=== PATIENT | female | born 1970 | race Caucasian/White ===

== ENCOUNTER 2017-03-25 11:03 | Inpatient (IN) ==
[2017-03-25] MEDS ORDERED: FentaNYL 100 MCG/2 ML INJECTION IVP ONE (11:31)
[2017-03-25] MEDS ORDERED: NS 1,000 ML IV ONE (11:31)
--- OUTSIDE RECORDS SUMMARY | 2017-03-25 11:35 | External Medical Summary | Referral Summary ---
:1970 Author Organization [facility] Address [address] [place] [address] [place] [address] Care Team Providers Name Role Phone Nick Marlow Primary Care Physician Encounter VC Date(s): 10/02/14 - 10/02/14 [facility], [address] [place] [id number]- Discharge Diagnosis: History of diverticulitis of colon Discharge Diagnosis: Abdominal pain, LLQ (left lower quadrant) Discharge Diagnosis: Alternating constipation and diarrhea Discharge Disposition: -Home or Self Care Attending Physician: Aaron García MD Admitting Physician: Aaron García MD Referring Physician: Aaron García MD Vital Signs Most recent to oldest [Reference Range]: 1 Temperature Tympanic [36.6-38.1 degC] 36.6 degC (10/02/14 2:37 PM) Peripheral Pulse Rate [60-100 bpm] 64 bpm (10/02/14 2:37 PM) Respiratory Rate [14-20 br/min] 16 br/min (10/02/14 2:37 PM) Blood Pressure [90-140/60-90 mmHg] 132/78 mmHg (10/02/14 2:37 PM) Problem List Condition Effective Dates Status Health Status Informant History of diverticulitis of Active colon(Confirmed) Morbid obesity(Confirmed) Active patient Allergies, Adverse Reactions, Alerts Substance Reaction Severity Status Alupent Dyspnea Active Rash aspirin Rash Active Benadryl Adverse reaction Active Cleocin Phosphate Abnormal liver enzymes Active Cortizone-5 Bladder dysfunction Active erythromycin Rash Active halothane Ventricular tachycardia Active Keflex Rash Active Lincocin rash Active neomycin Rash Active penicillins Rash Active sulfa drugs Rash Active tetracycline Active Medications albuterol CFC free 90 mcg/inh inhalation aerosol 2 puffs, Inhalation, QID, as needed for wheezing, updating med list, # 8.5 g, 0 Refill(s) Start Date: 09/27/14 Status: Orderedomeprazole 20 mg oral delayed release tablet 20 mg 1 tabs, Oral, Daily, updating med list, # 30 tabs, 0 Refill(s) Start Date: 09/27/14 Status: OrderedPhenergan 25 mg rectal suppository 25 mg 1 supp, Rectal, q6hr, updated med list, # 6 supp, 0 Refill(s) Start Date: 09/27/14 Status: Orderedphentermine 30 mg oral capsule 30 mg 1 caps, Oral, Daily, # 30 caps, 0 Refill(s) Start Date: 09/27/14 Status: OrderedSingulair 10 mg oral tablet 10 mg 1 tabs, Oral, qPM, updating med list, # 30 tabs, 0 Refill(s) Start Date: 09/27/14 Status: OrderedtraMADol 50 mg oral tablet See Instructions, has taken twice prn pain., 0 Refill(s) Start Date: 10/02/14 Status: OrderedTylenol Regular Strength 325 mg oral tablet 325 mg 1 tabs, Oral, q4hr, updating med list, # 50 tabs, 0 Refill(s) Start Date: 09/27/14 Status: Ordered Results No data available for this section Immunizations Vaccine Date Refusal Reason poliovirus vaccine, inactivated 02/12/13 poliovirus vaccine, inactivated 02/21/12 Procedures Procedure Date Related Diagnosis Body Site Cholecystectomy1, 2 05/15/13 Hysterectomy3 2010 Adenoidectomy 1984 Sinus problem4 1981 1Robotic assisted Cholecystectomy- by Dr. Geiger with stone [id number] for stone removal [id number] Hyst. with R Oophorectomy(spared L ovary) due to Menorrhagia and cysts age 89Sinus surgery age 12 Social History Social History Type Response Smoking Status Former smoker; Type: Cigarettes; Number of years: 21 1Quit in 1996 Assessment and Plan Extracted from: Title: Office Visit Note Author: Aaron García MD Date: 10/02/14 Assessment/Plan Abdominal pain, LLQ (left lower quadrant) Ordered: Office Visit Level 4 New [id number] Alternating constipation and diarrhea Ordered: Office Visit Level 4 New [id number] History of diverticulitis of colon Ordered: Office Visit Level 4 New [id number] Plan: No appropriate indication to repeat endoscopy/colonoscopy at this time. Pros and cons of surgical intervention discussed with patient in regards to her history for chronic diverticulitis. Non operative intervention at this time with ongoing close observation. I did review the patient's chart including office note performed by her primary care physician from August 05, 2014. I did go back and review a prior ER visit and CT scan performed on July. CT scan performed on this date did reveal recurrent sigmoid diverticulitis. Inflammatory changes and stranding were noted surrounding the sigmoid colon over a fairly long segment of involvem ent. This segment was also involved on a prior comparison study back in January 2012. Reviewed prior colonoscopy report from November 16, 2011 performed at [facility]. Sigmoid diverticuliti s was noted at that time. I did spend a fair amount of time discussing diverticulitis as an entity with the patient. I informed the patient that the "surgical dogma" in regards to surgical managemen t of diverticulitis has changed over the last several years. 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 Currently the surgical literat ure is recommending thatfor the most part only those patients with chronic relapsing diverticulitis should undergo surgical intervention. I informed the patient that I do believe that she is begin kyle to fall in this category given the fact that she has had recurrent bouts of diverticulitis in this calendar year. I informed the patient however I felt that she was at a increased operative risk given her degree of obesity. I informed the patient that secondary to her body habitus I felt that it would be difficult to proceed with a laparoscopic colon resection and that an open sigmoid resecti on would likely be required.I did go ahead and discuss in detail with the patient what an open sigmoid resection would entail and its associated risk which included but was not inclusive of bleeding , infection, and specifically the potential for anastomotic leak. After a moderate amount of discussion it was elected that we would not proceed with surgical intervention at this time and would liz nue to follow her from a clinical standpoint. If she would go on to develop further bouts of diverticulitis in the near future then that at that point time she was to return to the office for further evaluation. Given the fact that she had a colonoscopy performed only 3 years ago that was within normal limits I informed the patient that I did not feel that we needed to repeat a colonoscopy at this juncture in time. She is to return back her primary care physician for ongoing medical care.
--- OUTSIDE RECORDS SUMMARY | 2017-03-25 11:35 | External Medical Summary | Continuity of Care Document ---
:1970 Author Organization [facility] Allergies Medications Problems Procedures Results Encounters
--- OUTSIDE RECORDS SUMMARY | 2017-03-25 11:35 | External Medical Summary | Continuity of Care Document ---
:1970 Author Organization [facility] Support Name Relationship Address Phone OSVALDO NIEVES MD Unavailable [address] [place] [address] GOLDIE BERNARDO MD Unavailable [address] [place] [address] YUNIEL YEBOAH Unavailable [address] Unavailable [address] [place] [address] Insurance Providers Payer Name Policy Number Subscriber Name Relationship [employer] Ppo/Open [employer] [id number] Yuniel Yebo[place] 01 Spouse Problems Medical Problems Problem Onset Date Status cholelithiasis with acute cholecystitis Unknown Active elevated liver enzymes Unknown Active Diverticulitis Unknown Active Medications Medication Dose Route Sig Days/Qty Instructions Order Discontinued Status Date Date Albuterol 17 Gm IH 10/31/ 08/12/11 Discontin NEEDED 10 ued Albuterol 2.5 Mg IH 10/31/ 08/12/11 Discontin Sulfate NEEDED 10 ued Ciprofloxacin 500 Mg PO TWICE A 05/14/13 Discontin Hcl DAY 12 ued Metronidazole 500 Mg PO THREE 08/11/ 05/14/13 Discontin TIMES A 12 ued DAY Ipratropium/Al 14.7 IH 08/11/ Active buterol Gm NEEDED 12 Sulfate Hydrocodone 1 PO PRN 05/14/13 Discontin Bit/Acetaminop Udtab 12 ued hen Promethazine 25 Mg PO PRN 05/14/13 Discontin Hcl 12 ued Ciprofloxacin 1 Tab PO TWICE A 28 Qty 08/10/ Active HCl DAY 15 Metronidazole 1 Tab PO THREE 08/10/ Active TIMES A 15 DAY Hydrocodone/Ac 1 Tab PO EVERY 4 30 Qty 08/10/ Active etaminophen HOURS 15 PRN PAIN Ibuprofen 1 Tab PO Every 6 08/10/ Active Hours 15 PRN PAIN Acetaminophen 1-2 PO Every 6 08/10/ Active Tab Hours 15 PRN PAIN Tramadol HCl 1-2 PO Every 6 30 Qty 08/10/ Active Tab Hours 15 PRN PAIN Ondansetron 4 Mg PO Q6H/030 20 Qty Oral 08/10/ Active 0,0900, disintegrating 15 1500,21 tablet 00 PRN NAUSEA &/O R VOMITIN G Social History Social History Problem Response Recorded Date/Time Hx Substance Use No 08/10/2014 10:18am Hx Alcohol Use Y occassionally 08/10/2014 10:18am Has the pt used tobacco in the last 12 months Yes 05/14/2013 8:38pm Query Response Start Date Stop Date Smoking Status Former smoker Hospital Discharge Instructions No hospital discharge instructions. Plan of Care No plan of care. Functional Status Query Response Date Recorded Physical Hygiene Self August 10, 2014 10:18am Disabilities None August 10, 2014 10:18am Devices Used None August 10, 2014 10:18am Dressing Self August 10, 2014 10:18am Ambulation Self August 10, 2014 10:18am Diet Self August 10, 2014 10:18am Mental Status Alert August 10, 2014 10:18am Oriented Disabilities None August 10, 2014 10:18am Devices Used None August 10, 2014 10:18am Physical Hygiene Self August 10, 2014 10:18am Dressing Self August 10, 2014 10:18am Ambulation Self August 10, 2014 10:18am Diet Self August 10, 2014 10:18am Allergies, Adverse Reactions, Alerts Allergen Type Severity Reaction Status Last Updated metaproterenol Allergy Unknown RASH,SOA Active 08/10/14 sulfate lincomycin HCl Allergy Unknown RASH Active 08/10/14 clindamycin HCl Allergy Unknown "LIVER Active 08/10/14 SWELLING" clindamycin phosphate Allergy Unknown "LIVER Active 08/10/14 SWELLING" Clindamycin Palmitate Allergy Unknown "LIVER Active 08/10/14 SWELLING" Cephalexin Allergy Unknown RASH Active 08/10/14 Monohydrate Penicillin Allergy Unknown RASH Active 08/10/14 Sulfa (Sulfonamide Allergy Unknown RASH Active 08/10/14 Antibiotics) Halothane Allergy Unknown VENTRICULAR Active 08/10/14 TACHYCARDIA Aspirin Allergy Unknown RASH Active 08/10/14 Prednisone Allergy Intermediate SWELLING Active 08/10/14 Tetracycline Adverse Unknown STOMACH Active 08/10/14 Reaction ACHE,VOMITING,ELIAS RRHEA Erythromycin base Allergy Unknown RASH Active 08/10/14 Neomycin Allergy Unknown RASH Active 08/10/14 Zomepirac Allergy Unknown INTRADERMAL Active 08/10/14 BLEEDING Diphenhydramine Adverse Mild hyperactive Active 08/10/14 Reaction Vancomycin Allergy Severe Active 08/10/14 Cortisone Allergy Unknown SWELLING,BLADDER Active 08/10/14 DYSFUNCTION Immunizations Name Given Type Hx Influenza Vaccination Y mar 2014 Historical Hx Pneumococcal Vaccination No Historical Hx Influenza Vaccination Y mar 2014 Historical Vital Signs Acute Vital Signs Vital Response Date/Time Temperature (Fahrenheit) 97.4 deg F (96.8 - 99.1) Temperature (Calculated Celsius) 36.81539 degrees C (36.0 - 37.3) Pulse Rate (adult) 55 bpm (60 - 100) Respiratory Rate 20 breaths/min (10 - 20) O2 Sat by Pulse Oximetry 96 % (90 - 100) Blood Pressure 158/70 mm Hg Height 5 ft 6 in Weight 272 lb Body Mass Index 43.0 kg/m^2 Results Test Source Date Result Interp. Ref. Comments Range Activated Partial May 14, 30.8 SEC N 24-36 Thromboplast Time 2013 3:45pm Alanine July 11, 33 U/L N 9-52 Aminotransferase 2014 (ALT/SGPT) 11:00am Albumin August 10, 4.0 G/DL N 3.5-5.0 2014 11:00am Albumin/Globulin August 10, 1.2 RATIO N 1.1-2.2 Ratio 2014 11:00am Alkaline Phosphatase July 11, 69 U/L N 38-126 2014 11:00am Amylase Level July 10, 49 U/L N 30-110 2012 9:40am Anion Gap July 11, 12 MEQ/L N 5-15 2014 11:00am Aspartate Amino July 11, 28 U/L N 14-36 Transf (AST/SGOT) 2014 11:00am BUN/Creatinine Ratio August 10, 13 RATIO N 6-26 2014 11:00am Basophils # (Auto) August 10, 0.1 T/MM3 N 0-0.2 2014 11:00am Basophils (%) (Auto) August 10, 0.6 % N 0-2 2014 11:00am Blood Urea Nitrogen August 10, 8.0 MG/DL N 7-17 2014 11:00am C-Reactive Protein December 07, 6.3 MG/L N 0-9 2010 2:55pm Calcium Level August 10, 8.9 MG/DL N 8.4-10.2 2014 11:00am Calculated August 10, 267 MOSM/KG N 261-280 Osmolality 2014 11:00am Carbon Dioxide Level August 10, 23 MEQ/L N 22-30 2014 11:00am Chemistry Specimen August 10, 54 H 0-25 0-25: No Hemolysis.26-70: Slight Hemolysis - can falsely elevate K and Urine Hemolysis 2014 Protein. 11:00am 71-285: Moderate Hemolysis - can falsely elevate K, Troponin I, CA 19-9, PTH, CSF GLucose, and Urine Protein, and can falsely decrease Phenytoin. 286-999: Gross Hemolysis - can falsely elevate K, Troponin I, CA 19-9, PTH, CSF Glucose, and Urine Protine, and can falsely decrease Phenytoin. Recommend specimen recollection. Chloride Level August 10, 105 MEQ/L N 98-107 2014 11:00am Cholesterol Level July 22, 212 MG/DL H [phone] 6:34am Cholesterol/HDL July 22, 5.3 RATIO H 0-4.0 Ratio 2011 6:34am Creatinine August 10, 0.6 MG/DL L 0.7-1.2 2014 11:00am Eosinophils # (Auto) August 10, 0.2 T/MM3 N 0-0.5 2014 11:00am Eosinophils (%) August 10, 2.1 % N 0-4 (Auto) 2014 11:00am Erythrocyte December 07, 6 MM/HR N 0-20 Sedimentation Rate 2010 2:55pm Ferritin July 22, 29.7 NG/ML N 6-137 2011 6:34am Globulin August 10, 3.3 G/DL N 2.4-3.6 2014 11:00am Glomerular August 10, 110 - Filtration Rate Calc 2014 11:00am Glucose Level August 10, 90 MG/DL N 65-110 2014 11:00am HDL Cholesterol July 22, 40 MG/DL N 40-60 Direct 2011 6:34am Hematocrit August 10, 40.9 % N 36-46 2014 11:00am Hemoglobin August 10, 13.7 GM/DL N 12-16 2014 11:00am Human Chorionic October 31, Negative - Gonadotropin, Qual 2009 7:26am Icterus Index August 10, < 2 0-7 2014 11:00am Immature Granulocyte August 10, 0.01 T/MM3 N 0.00-0.03 # (Auto) 2014 11:00am Immature Granulocyte August 10, 0.1 % N 0.0-0.5 % (Auto) 2014 11:00am Influenza Type A July 13, Negative - Antigen 2009 12:12am Influenza Type B July 13, Negative - Antigen 2009 12:12am LDL Cholesterol, July 22, 172 H 66-159 Calculated 2011 6:34am Lab Scanned Report August 09, LAB TEST FORM - 2011 8:59pm REQUEST [id number] Lipase August 10, 81 U/L N 23-300 2014 11:00am Lymphocytes # (Auto) August 10, 2.3 T/MM3 N 1-4.8 2014 11:00am Lymphocytes (%) August 10, 24.8 % N 23-45 (Auto) 2014 11:00am Mean Corpuscular August 10, 30.5 UUG N 26-34 Hemoglobin 2014 11:00am Mean Corpuscular August 10, 33.5 GM/DL N 31-37 Hemoglobin Concent 2014 11:00am Mean Corpuscular August 10, 91.1 UM3 N 80-100 Volume 2014 11:00am Mean Platelet Volume August 10, 10.4 UM3 N 9.4-12.4 2014 11:00am Monocytes # (Auto) August 10, 0.4 T/MM3 N 0-0.8 2014 11:00am Monocytes (%) (Auto) August 10, 3.8 % N 0-9.0 2014 11:00am NW-Ojx-N-Type May 14, 40 PG/ML N 0-175 Rule in cut points: <50 years old=450; Natriuretic Peptide 2013 3:45pm 50-75 years old=900; >75 years old=1800; When utilizing ProBNP rule-in cut points, adjustment for impaired renal function is typically not required. Neutrophils # (Auto) August 10, 6.4 T/MM3 N 1.8-7.7 2014 11:00am Neutrophils (%) August 10, 68.6 % H 33-66 (Auto) 2014 11:00am Platelet Count August 10, 283 T/MM3 N 143-930 0374 11:00am Potassium Level August 10, 4.4 MEQ/L N 3.6-5 2014 11:00am Prothromb Time May 14, 0.92 N 0.86-1.10 THERAPUTIC International Ratio 2013 3:45pm RANGE=2.00-3.00 FOR ANTI-THROMBOSIS THERAPUTIC RANGE=2.50-3.50 FOR IMPLANTED VALVE RDW Standard August 10, 40.9 FL N 36.9-50.2 Deviation 2014 11:00am Red Blood Count August 10, 4.49 M/MM3 N 4.00-5.20 2014 11:00am Sodium Level August 10, 140 MEQ/L N [phone] 11:00am Thyroid Stimulating July 22, 2.11 MIU/L N 0.47-4.68 Hormone (TSH) 2011 6:34am Total Bilirubin August 10, 0.40 MG/DL N 0.20-1.30 2014 11:00am Total Protein August 10, 7.3 G/DL N 6.3-8.2 2014 11:00am Triglycerides Level July 22, 118 MG/DL N 35-135 2011 6:34am Troponin I May 14, < 0.012 0-0.12 2013 3:45pm ng/ml Turbidity August 10, < 20 0-20 2014 11:00am Urinalysis Comment August 10, Microscopic not - Has specimen 2014 ind. been 11:50am collected/obtai junior? Y Urine Bilirubin August 10, Negative - Has specimen 2014 been 11:50am collected/obtai junior? Y Urine Blood August 10, Negative - Has specimen 2014 been 11:50am collected/obtai junior? Y Urine Collection August 10, Voided-not - Has specimen Type 2014 cc-midstr been 11:50am collected/obtai junior? Y Urine Color August 10, Yellow - Has specimen 2014 been 11:50am collected/obtai junior? Y Urine Glucose (UA) August 10, Negative - Has specimen 2015 been 11:50am collected/obtai junior? Y Urine Ketones August 10, Negative - Has specimen 2015 been 11:50am collected/obtai junior? Y Urine Leukocyte August 10, Negative - Has specimen Esterase 2015 been 11:50am collected/obtai junior? Y Urine Microscopic December 07, Not indicated - COMMENT DO Not Indicated 2010 5:52pm C&S IF INDICATEDHas specimen been collected/obtai junior? Y Urine Mucus August 11 Present - Has specimen 2011 2:10am been collected/obtai junior? Y Urine Nitrite August 10, Negative - Has specimen 2014 been 11:50am collected/obtai junior? Y Urine Protein August 10, Negative - Has specimen 2014 been 11:50am collected/obtai junior? Y Urine RBC August 11, 0-1 /HPF - Has specimen 2011 2:10am been collected/obtai junior? Y Urine Specific August 10, <=1.005 L - Has specimen [place] 2014 been 11:50am collected/obtai junior? Y Urine Squamous August 11, Moderate - Has specimen Epithelial Cells 2011 2:10am been collected/obtai junior? Y Urine Turbidity August 10, Clear - Has specimen 2014 been 11:50am collected/obtai junior? Y Urine Urobilinogen August 10, 0.2 EU/DL - Has specimen 2014 been 11:50am collected/obtai junior? Y Urine WBC August 11, 1-3 /HPF - Has specimen 2011 2:10am been collected/obtai junior? Y Urine pH August 10, 6.0 - Has specimen 2014 been 11:50am collected/obtai junior? Y VLDL Cholesterol July 22, 23.6 MG/DL N 0-28 2011 6:34am White Blood Count August 10, 9.3 T/MM3 N 4.5-11.0 2014 11:00am Blood Culture Blood December 07, NO GROWTH AFTER 2010 3:00pm 5 DAYS Procedures No known history of procedures. Encounters Encounter Location Date/Time Departed Emergency Room [facility] 08/10/14 10:07am Recent Diagnosis
[2017-03-25] MEDS ORDERED: SALINE FLUSH 10ml SYRINGE ONE (11:47)
[2017-03-25] MEDS ORDERED: IOHEXOL 300mg/ml 75ml INJECTION ONE (11:47)
[2017-03-25] MEDS ORDERED: NS 100 ML ONE (11:47)
[2017-03-25] MEDS ORDERED: IOHEXOL 300mg/ml 50ml INJECTION ONE (11:48)
[2017-03-25] MEDS: SALINE FLUSH 10ml SYRINGE IVF PRN ×2 (12:05→13:30)
--- NOTE | 2017-03-25 12:35 | Emergency Department Report ---
Abdominal Pain HPI - General Chief Complaint: Abdominal Pain Stated Complaint: severe abd pain,fever,nauesa Time Seen by Provider: 03/25/17 11:30 - History of Present Illness HPI narrative: 47-year-old female presents with left lower quadrant pain. This started about 2 days ago, she did have a fever yesterday. Has had some nausea but no vomiting. She has a long-standing history of diverticulitis which initially started when she was about 22 years old. She then settled down for several years, but is re- flared in the last 6 years or so. Chest she has a standing order of doxycycline to fill any time she starts to have pain. She has had stool over the last 2 days , seems to be random whether it is solid or liquid. - Related Data Home Medications Medication Instructions Recorded Confirmed Ibuprofen 1 tab PO Q6H PRN #0 tab 08/10/14 03/25/17 Acetaminophen SR [Tylenol 1,300 mg PO Q8HR 03/25/17 03/25/17 Arthritis] Doxycycline [Vibramycin] 100 mg PO BID 03/25/17 03/25/17 Ipatropium/Albuterol [Combivent 1 puff INH QID 03/25/17 03/25/17 Respimat Inhaler] Previous Rx's Medication Instructions Recorded Ondansetron [Zofran Odt] 4 mg PO Q6HR PRN #20 tab 08/10/14 Allergies Allergy/AdvReac Type Severity Reaction Status Date / Time vancomycin Allergy Severe Verified 08/10/14 10:18 prednisone Allergy Intermediate SWELLING Verified 08/10/14 10:18 aspirin Allergy Unknown RASH Verified 08/10/14 10:18 cortisone Allergy Unknown SWELLING,BLADDER Verified 08/10/14 10:18 DYSFUNCTION erythromycin base Allergy Unknown RASH Verified 08/10/14 10:18 halothane Allergy Unknown VENTRICULAR Verified 08/10/14 10:18 TACHYCARDIA neomycin Allergy Unknown RASH Verified 08/10/14 10:18 Penicillins Allergy Unknown RASH Verified 08/10/14 10:18 Sulfa (Sulfonamide Allergy Unknown RASH Verified 08/10/14 10:18 Antibiotics) zomepirac Allergy Unknown INTRADERMAL Verified 08/10/14 10:18 BLEEDING diphenhydramine AdvReac Mild hyperactive Verified 08/10/14 10:18 tetracycline AdvReac Unknown STOMACH Verified 08/10/14 10:18 ACHE,VOMITING,DIARRHEA Cephalexin Monohydrate Allergy Unknown RASH Uncoded 08/10/14 10:18 clindamycin HCl Allergy Unknown "LIVER Uncoded 08/10/14 10:18 SWELLING" Clindamycin Palmitate Allergy Unknown "LIVER Uncoded 08/10/14 10:18 SWELLING" clindamycin phosphate Allergy Unknown "LIVER Uncoded 08/10/14 10:18 SWELLING" lincomycin HCl Allergy Unknown RASH Uncoded 08/10/14 10:18 metaproterenol sulfate Allergy Unknown RASH,SOA Uncoded 08/10/14 10:18 Review of Systems All systems: reviewed and negative except as stated [facility] Patient Stated Medical History Asthma Yes Sleep Apnea Yes Other GI Yes: Diverticulitis Substance Use Disorder No - Social History Smoking status: Current some day smoker Substance use type: does not use Physical Exam - General General appearance: alert, in distress (pain) Course Vital Signs Temperature 99.1 F 03/25/17 11:13 Pulse Rate 89 03/25/17 11:13 Respiratory Rate 20 03/25/17 11:13 Blood Pressure 175/78 H 03/25/17 11:13 Pulse Oximetry 100 03/25/17 11:13 Temperature 99.1 F 03/25/17 11:13 Pulse Rate 83 03/25/17 11:42 Respiratory Rate 20 03/25/17 11:13 Blood Pressure 175/78 H 03/25/17 11:13 Pulse Oximetry 100 03/25/17 11:13 Abdominal Pain - Lab Data Result diagrams: 03/25/17 11:50 03/25/17 11:50 Lab Results 03/25/17 03/25/17 Range/Units 11:50 11:50 WBC 14.0 H (4.5-11.0) T/MM3 RBC 3.89 L (4.00-5.20) M/MM3 Hgb 12.3 (12-16) GM/DL Hct 37.8 (36-46) % MCV 97.2 (80-100) UM3 MCH 31.6 (26-34) UUG MCHC 32.5 (31-37) GM/DL RDW Std Deviation 45.9 (36.9-50.2) FL Plt Count 265 (130-400) T/MM3 MPV 10.8 (9.4-12.4) UM3 Immature Gran % (Auto) 0.1 (0.0-0.5) % Neut % (Auto) 81.4 H (33-66) % Lymph % (Auto) 12.2 L (23-45) % [place] % (Auto) 4.8 (0-9.0) % Eos % (Auto) 1.2 (0-4) % Baso % (Auto) 0.3 (0-2) % Neut # (Auto) 11.4 H (1.8-7.7) T/MM3 Lymph # (Auto) 1.7 (1-4.8) T/MM3 [place] # (Auto) 0.7 (0-0.8) T/MM3 Eos # (Auto) 0.2 (0-0.5) T/MM3 Baso # (Auto) 0.0 (0-0.2) T/MM3 Abs Immat Gran (auto) 0.02 (0.00-0.03) T/MM3 Turbidity < 20 (0-20) Sodium 142 (134-144) MEQ/L Potassium 4.3 (3.6-5) MEQ/L Chloride 105 (98-107) MEQ/L Carbon Dioxide 24 (22-30) MEQ/L Anion Gap 13 (5-15) MEQ/L BUN 11.0 (7-17) MG/DL Creatinine 0.6 L (0.7-1.2) MG/DL GFR Calculation 108 BUN/Creatinine Ratio 18 (6-26) RATIO Glucose 102 (65-110) MG/DL Calculated Osmolality 272 (261-280) MOSM/KG Calcium 9.1 (8.4-10.2) MG/DL Total Bilirubin 0.40 (0.20-1.30) MG/DL Icterus Index < 2 (0-7) AST 30 (14-36) U/L ALT 70 H (9-52) U/L Alkaline Phosphatase 96 (38-126) U/L Total Protein 6.7 (6.3-8.2) G/DL Albumin 3.8 (3.5-5.0) G/DL Globulin 2.9 (2.4-3.6) G/DL Albumin/Globulin Ratio 1.3 (1.1-2.2) RATIO Lipase 46 (23-300) U/L Plasma Lactate 0.9 (0.6-2.2) MMOL/L Specimen Hemolysis < 15 (0-25) Disposition Prescriptions: No Action Ibuprofen 1 tab PO Q6H PRN #0 tab PRN Reason: PAIN Doxycycline [Vibramycin] 100 mg PO BID Ondansetron [Zofran Odt] 4 mg PO Q6HR PRN #20 tab PRN Reason: NAUSEA &/OR VOMITING Ipatropium/Albuterol [Combivent Respimat Inhaler] 1 puff INH QID Acetaminophen SR [Tylenol Arthritis] 1,300 mg PO Q8HR Referrals: Nick Marlow MD [Family Provider] -
[2017-03-25] MEDS ORDERED: Oxycodone/Acetaminophen 5/325 1 TAB PO ONE (12:43)
--- NOTE | 2017-03-25 12:54 | CT Scan Report ---
Indication: hx of diverticulitis, llq pain today PROCEDURE: CT abdomen pelvis w con: Encounter: Initial Comparison: CT dated August 10, 2014 and February 09, 2012 Technique: Axial CT images were performed through the abdomen and pelvis after the administration of intravenous contrast. Coronal and sagittal two-dimensional reformats. Automated Exposure Control and Iterative Reconstruction dose reducing techniques were utilized. Contrast: Omnipaque 300 100 mL Findings: Mild atelectasis in the lung bases. Benign nodule in the left lower lobe. Posterior diaphragmatic defect with an intrathoracic stomach. The liver shows no enhancing mass or bile duct dilatation. The gallbladder is surgically absent. The spleen, pancreas and adrenal glands are within normal limits. The kidneys are normal. No abdominal or pelvic lymphadenopathy. The bladder is normal. Severe inflammation in the mid to distal sigmoid colon. There is extraluminal fluid seen in the left pelvic sidewall along a structure which in the expected location of the left ovary seen on axial image 65. This structure measures 4.6 cm in diameter and is unchanged from the 2015 comparison. The patient has reportedly had her left ovary removed. The area of phlegmon or abscess adherent or involving this structure measures 5.3 cm in diameter on image #62. Scattered additional diverticulosis seen in the left and transverse colon. No evidence of a bowel obstruction. Bone windows show benign chronic sclerosis in the right pubic symphysis and bone islands. Impression: Severe acute sigmoid diverticulitis with evidence of a contained perforation and phlegmon/abscess in the left pelvic sidewall area. Emergent surgical consultation is recommended. This collection is complex, surrounded by vessels and adherent to a chronic cystic structure in the left pelvic sidewall. This could represent an adnexal or peritoneal inclusion cyst versus a chronic abscess. The abscess would not be amenable to percutaneous image guided drainage placement. This same segment of colon has been involved at least two other times, in 2014 and 2011. .
[2017-03-25] MEDS ORDERED: PROCHLORPERAZINE 10 MG/2 ML INJECTION IVP ONE (13:20)
[2017-03-25] MEDS ORDERED: HYDROMORPHONE 2 MG/ML INJECTION IVP ONE (13:20)
[2017-03-25] MEDS ORDERED: MetroNIDAZOLE PB 250 MG/50 ML BAG IV SCH (13:45)
[2017-03-25] MEDS ORDERED: CIPROFLOXACIN IV SCH (13:45)
[2017-03-25] MEDS: MetroNIDAZOLE PB 500 MG/100 ML BAG IV SCH ×2 (14:05→20:47)
[2017-03-25] MEDS: CIPROFLOXACIN PB 400 MG/200 ML BAG IV SCH (14:05)
[2017-03-25] MEDS ORDERED: ACETAMINOPHEN 500 MG TABLET PO PRN (15:25)
[2017-03-25] MEDS ORDERED: HYDROMORPHONE 2 MG/ML INJECTION IVP PRN (15:25)
[2017-03-25] MEDS ORDERED: METOCLOPRAMIDE 10mg/2ml INJECTION IVP PRN (15:25)
[2017-03-25 15:49] VITALS: BMI 41.2
[2017-03-25] MEDS: LR 1,000 ML IV SCH (15:53)
[2017-03-25] MEDS: HYDROMORPHONE PCA 30mg/30ml VIAL IV PRN (16:22)
[2017-03-26] MEDS: LR 1,000 ML IV SCH ×2 (00:22→10:34)
[2017-03-26] MEDS: CIPROFLOXACIN PB 400 MG/200 ML BAG IV SCH ×2 (01:22→15:52)
[2017-03-26] MEDS: ONDANSETRON 4 MG/2 ML INJECTION IVP PRN ×2 (01:28→08:05)
[2017-03-26] MEDS: MetroNIDAZOLE PB 500 MG/100 ML BAG IV SCH ×3 (04:50→21:29)
[2017-03-26] MEDS ORDERED: Ipatropium/Albuterol 20/100mcg INHALER (4gm) ORAL INH PRN (11:22)
[2017-03-26] MEDS ORDERED: ALBUTEROL/IPRATROPIUM 2.5mg-0.5mg/3ml NEB AEROSOL PRN (11:55)
[2017-03-26] MEDS: NS with KCL 20 mEq 1,000 ML IV SCH ×2 (12:55→21:23)
--- NOTE | 2017-03-26 13:25 | History and Physical ---
DATE OF ADMISSION 03/25/2017 REASON FOR ADMISSION Diverticulitis. HISTORY OF PRESENT ILLNESS Magda is a 47-year-old female who was previously known to my surgical practice from a laparoscopic cholecystectomy in May 2013. She has a history of diverticulitis that started in college. She had some episodes around the of her first child in 1992. She also had a few episodes prior to her colonoscopy in October 2011. She said that she had a few episodes after her colonoscopy but that her episodes all resolved with use of doxycycline. The patient developed some mild symptoms on 03/21/2017. She felt weak and achy. On 03/22/2017 she started taking her previously prescribed doxycycline which was prescribed for episodes of diverticulitis flares. Her pain had been worse since she started the antibiotics. She did feel bad on Tuesday and Tuesday. She limited herself to a clear liquid diet. On Tuesday night she slept better. On she felt pretty good but had some continued nausea. She had no vomiting. Her pain improved and she slept okay that night. Today her pain was progressively worse. She described it as crampy or sharp pressure. She rated it 8 to 9 out of 10 in severity. She had only had some tea and oatmeal. Her pain was better after receiving pain medication in the hospital. She has had some chills throughout the whole episode. She had a fever of 100.8 yesterday despite taking Tylenol. She did report some diarrhea and some constipation. She has not seen any melanotic stools. After receiving fentanyl, Percocet, and Dilaudid her pain is decreased to 3 to 4 out of 10 in severity. Her last episode of diverticulitis that was treated with antibiotics alone was in the summer of 2015. PAST MEDICAL HISTORY 1. Recurrent sigmoid diverticulitis. 2. Asthma. PAST SURGICAL HISTORY 1. Adenoidectomy - age 12. 2. Sinus surgery. 3. [place] teeth extraction - age 18. 4. Laparoscopic-assisted vaginal hysterectomy and right salpingo-oophorectomy and tension-free vaginal taping - 10/31/[address] Eloisa Hardy at [facility]. Pathology revealed simple endometrial hyperplasia and a benign right follicular cyst of the ovary. 5. Colonoscopy - 11/16/[address] Stratton at [facility]. Colonoscopy revealed sigmoid diverticulitis. 6. Laparoscopic cholecystectomy with intraoperative cholangiogram - 05/15/[address] Geiger at [facility]. Intraoperative cholangiogram showed a nonobstructing common bile duct stone. Pathology revealed mild chronic cholecystitis. 7. ERCP - [address] Quirino Torres at [facility] in [place], [place]. SOCIAL HISTORY The patient is ( in December 2015, divorce finalized in June 2016). 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 She uses tobacco occasionally. She uses alcohol occasionally. Her mother is the director of laboratory services at [facility]. FAMILY HISTORY Breast cancer in a paternal grandmother. Diabetes in a paternal grandmother. Heart disease in paternal grandfather and father. Kidney disease in maternal grandfather. Hypothyroidism in her mother and maternal grandmother. ALLERGIES The patient has multiple medication allergies. Please see the electronic medical record for the full list. MEDICATIONS See the admission medical reconciliation. REVIEW OF SYSTEMS Ten-point review of systems was negative except for History of Present Illness and the following: HEENT: She does report headache. RESPIRATORY: She reports cough. GENITOURINARY: She denies any pneumouria. PSYCHIATRIC: She had some depression during the period of her divorce from December 2015 to June 2016. PHYSICAL EXAMINATION VITAL SIGNS: Reviewed - see EMR. GENERAL: The patient is awake and alert in no acute distress. HEENT: Sclerae clear. Extraocular muscles intact. NECK: Supple with a midline trachea. No lymphadenopathy or thyromegaly noted. HEART: Regular rate and rhythm. LUNGS: Clear to auscultation bilaterally. ABDOMEN: Soft, tender in the left lower quadrant mainly, nondistended. There is some localized rebound tenderness but the other quadrants of the abdomen show no rebound. She has no guarding. There is mild tenderness in the right lower quadrant. EXTREMITIES: No clubbing, cyanosis or edema. NEUROLOGIC: Cranial nerves II-XII are grossly intact. PSYCHIATRIC: Normal mood and affect. LABORATORY DATA White blood cell count 14.0 with 81.4% neutrophils. IMAGING CT scan of the abdomen and pelvis was personally reviewed by me. I also discussed the case with Dr. Christiano Hess of Radiology. I also reviewed prior CT scan of the abdomen and pelvis from July 2014. There is significant inflammation around the sigmoid colon and the retroperitoneal space superior to the left ovary which is cystic in nature. There is no loculated abscess cavity. There is no evidence of free perforation. IMPRESSION 1. Severe sigmoid diverticulitis with contained perforation in the retroperitoneum of the left lower quadrant. There is no defined abscess cavity currently. 2. Asthma - chronic, well-controlled. PLAN 1. I had a lengthy discussion with Magda about medical management versus surgical management of her diverticulitis. I did explain that surgical management would be a Sunil's procedure which would have a colostomy as part of her treatment given the inflammation. I explained that medical management may fail but it would be ideal if she could have a sigmoid resection performed when there was not active inflammation. Following discussion of the options she wanted to try medical management with IV antibiotics. 2. Given her allergies I will treat her with ciprofloxacin and Flagyl. 3. IV fluids. 4. I will allow her sips and chips. SARAH
--- NOTE | 2017-03-26 15:00 | Progress Note ---
DATE OF VISIT 03/26/2017 REASON FOR VISIT Follow diverticulitis. SUBJECTIVE Magda feels a little bit better than when she presented to the emergency department. She says her pain has been around 3 to 4 out of 10 in severity with medication. She has been having nausea and is requiring Zofran as well as Reglan. She has had some mild fevers. She does overall feel better than at her arrival to the hospital. OBJECTIVE VITAL SIGNS: Temperature 100.5, pulse 89, blood pressure 138/71, respiratory rate 20, oxygen saturation 93% on room air. GENERAL: The patient is awake and alert. She is in mild distress. She is lying in bed. HEART: Regular rate and rhythm. LUNGS: Clear to auscultation bilaterally. ABDOMEN: Soft, nontender in the upper quadrants. She has some mild tenderness in the right lower quadrant and significant tenderness in the left lower quadrant. There is no rebound tenderness in the upper abdomen. She does not demonstrate any guarding. EXTREMITIES: No clubbing, cyanosis or edema. LABORATORY DATA White blood cell count increased to 19.5 with 74% neutrophils and 13% bands. Her potassium was 3.4. Calcium was 8.1. IMPRESSION 1. Sigmoid diverticulitis - severe with contained perforation in the left lower quadrant in the retroperitoneum. She does note some slight clinical improvement in symptoms. 2. Asthma - chronic, stable. 3. Hypokalemia. PLAN 1. I will allow Magda 8 ounces of clear liquids every eight hours since it does not appear that she needs to go to surgery today. 2. Clinically she is improving slightly although laboratory values do show worsening white count and she has had fevers. I think she is still a candidate for medical management but the trend will have to be followed. I do not see an acute surgical need today. 3. I will change her IV fluids to normal saline with 20 mEq of KCl. 4. Recheck lab in the morning. 5. 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 6. Add incentive spirometer and p.r.n. inhalers. 7. The patient's questions were answered as well as her mother's questions who was present. SARAH
[2017-03-27] MEDS: NS with KCL 20 mEq 1,000 ML IV SCH ×4 (01:54→15:52)
[2017-03-27] MEDS: CIPROFLOXACIN PB 400 MG/200 ML BAG IV SCH ×2 (01:57→15:48)
[2017-03-27] MEDS: MetroNIDAZOLE PB 500 MG/100 ML BAG IV SCH ×3 (05:31→21:32)
[2017-03-28] MEDS: CIPROFLOXACIN PB 400 MG/200 ML BAG IV SCH ×2 (02:04→15:48)
[2017-03-28] MEDS: NS with KCL 20 mEq 1,000 ML IV SCH (02:48)
[2017-03-28] MEDS: HYDROMORPHONE PCA 30mg/30ml VIAL IV PRN (03:11)
[2017-03-28] MEDS: MetroNIDAZOLE PB 500 MG/100 ML BAG IV SCH ×3 (05:31→22:19)
--- NOTE | 2017-03-28 06:57 | Progress Note ---
DATE OF VISIT 03/27/2017 REASON FOR VISIT Follow diverticulitis. SUBJECTIVE Magda feels like she is doing slightly better today. Her nausea has resolved. Her fluid restriction was removed and she says she has been drinking well. Her pain has decreased in intensity slightly and has become more crampy in nature and less sharp. She does feel it is extending slightly higher on the left and is less noticeable on the right. OBJECTIVE VITAL SIGNS: T-max 101.2 yesterday. T-current 100.6. Pulse 100. Blood pressure 143/85. Respiratory rate 16. Oxygen saturation 90% on 2 liters nasal cannula. GENERAL: The patient is awake and alert. She is in no acute distress. HEART: Regular rate and rhythm. LUNGS: Clear to auscultation bilaterally. ABDOMEN: Soft, less tender in the left lower quadrant. There is no guarding or rebound noted. EXTREMITIES: No significant edema. LABORATORY DATA White blood cell count decreased slightly to 18.9 with 88% neutrophils, 4% bands. Her potassium was in the normal range. Calcium was 8.0. IMPRESSION 1. Sigmoid diverticulitis - severe with contained perforation in left lower quadrant - slight clinical improvement. 2. Asthma - chronic, stable. 3. Hypokalemia - resolved. 4. Hypocalcemia - mild. PLAN 1. Advance to full liquid diet. 2. Decrease IV fluid rate. 3. Continue IV antibiotics. 4. She continues to show slow steady progress and so I will plan on continuing attempted medical management. 5. Recheck lab tomorrow. MTDD
[2017-03-28] MEDS: Oxycodone/Acetaminophen 5/325 1 TAB PO PRN ×4 (10:05→22:19)
[2017-03-28] MEDS: POLYETHYL GLYCOL 3350 17gm PACKET PO SCH (11:30)
--- NOTE | 2017-03-28 16:00 | Progress Note ---
DATE OF VISIT 03/28/2017 REASON FOR VISIT Follow diverticulitis. SUBJECTIVE Magda says she is feeling better today. She has not had a fever in 24 hours. She has been passing flatus but has not had a bowel movement since coming to the hospital. She denies any nausea and has been tolerating her full liquid diet. She was switched to oral Percocet for pain control earlier today. OBJECTIVE VITAL SIGNS: Temperature 97.4, pulse 81, blood pressure 144/95, respiratory rate 16, oxygen saturation 93% on room air. GENERAL: The patient is awake, alert, in no acute distress. ABDOMEN: Soft, minimally tender in the left lower quadrant with no guarding or rebound noted. LABORATORY White blood cell count 13.2 with 84% neutrophils. IMPRESSION 1. Severe sigmoid diverticulitis with contained perforation in the retroperitoneum of the left lower quadrant - clinically improving with improved white count and symptomatology. 2. Obesity with BMI greater than 40. 3. Mild hypokalemia with potassium of 3.5. 4. Mild hypocalcemia - improved today. PLAN 1. I will begin MiraLAX daily until Magda begins to have some bowel function. 2. Advance to a soft diet. 3. Continue IV antibiotics. 4. Transition to oral pain medication. 5. Recheck lab in the morning. MTDD
[2017-03-29] MEDS: NS with KCL 20 mEq 1,000 ML IV SCH (01:42)
[2017-03-29] MEDS: CIPROFLOXACIN PB 400 MG/200 ML BAG IV SCH ×2 (02:55→16:41)
[2017-03-29] MEDS: Oxycodone/Acetaminophen 5/325 1 TAB PO PRN ×3 (03:06→12:21)
[2017-03-29] MEDS: MetroNIDAZOLE PB 500 MG/100 ML BAG IV SCH ×2 (06:30→14:47)
[2017-03-29] MEDS: POLYETHYL GLYCOL 3350 17gm PACKET PO SCH (08:10)
[2017-03-29 16:40] VITALS: BP 155/86; PULSE 64; RESP 16; TEMP 99; O2SAT 100
--- NOTE | 2017-03-29 18:07 | Progress Note ---
DATE OF VISIT 03/29/2017 REASON FOR VISIT Follow diverticulitis. SUBJECTIVE Magda feels better today. Her pain has decreased even more. She had a good breakfast and good lunch. Her pain has been minimal and has been controlled with one to two Percocet tablets. OBJECTIVE VITAL SIGNS: Temperature 96.6, pulse 82, blood pressure 150/87, respiratory rate 16, oxygen saturation 95% on room air. GENERAL: The patient is awake, alert, in no acute distress. HEART: Regular rate and rhythm. LUNGS: Clear to auscultation bilaterally. ABDOMEN: Soft, obese, minimally tender in the left lower quadrant, nondistended. No rebound is noted. EXTREMITIES: No clubbing, cyanosis or edema. LABORATORY DATA White blood cell count is normal at 6.9 with 61% neutrophils and 2% bands. Potassium was 3.4. IMPRESSION 1. Severe sigmoid diverticulitis with contained perforation in the retroperitoneum of the left lower quadrant - clinically improved with normal white count and minimal abdominal pain. 2. Obesity with BMI greater than 40. 3. Mild hypokalemia with potassium of 3.4. PLAN 1. I do think that Magda clinically is improved to the point of being able to be dismissed. She is tolerating a diet and pain is controlled with oral medications. 2. Follow up in clinic in about one week. I think she will need a CT scan of the abdomen and pelvis about two weeks from her original scan. 3. I will transition her to oral Cipro and Flagyl on discharge. SARAH
--- NOTE | 2017-03-30 11:23 | Discharge Summary ---
ATTENDING PHYSICIAN Aaron Geiger MD Primary Care Physician Phuong Cornell MD of [facility] REASON FOR ADMISSION Diverticulitis. DISCHARGE DIAGNOSES 1. Severe sigmoid diverticulitis with contained perforation in the retroperitoneum of the left lower quadrant. 2. Obesity with BMI greater than 40. 3. Mild hypokalemia. 4. Mild hypocalcemia. PROCEDURES None. CONSULTATIONS None. BRIEF HOSPITAL COURSE Magda is a 47-year-old female who presented to the Emergency Department complaining of left lower quadrant abdominal pain that had begun on 03/21/2017. She tried to deal with this at home on 03/23/2017 and 03/24/2017. By 2016, despite outpatient use of doxycycline, she was doing poorly enough to come to the Emergency Department. She had a CT scan that showed perforation in the retroperitoneum of the left lower quadrant and significant sigmoid diverticulitis. She was then admitted to the hospital for IV antibiotics. Discussion was had of options of medical management versus surgical management for her acute diverticulitis episode. She opted for a trial of medical management. She was placed on IV Cipro and IV Flagyl, given her multiple drug allergies. 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 She was kept n.p.o. initially other than ice chips and sips of water. Gradually, her diet was advanced as her pain improved. When she was tolerating a full liquid diet, she had pain pills started. She was continued on the antibiotics and her white count initially climbed but then decreased steadily until the day of dismissal when her white count had returned to normal. She had also been afebrile for almost 48 hours. Her abdominal pain had progressively improved. She initially had nausea but this resolved after the first 24 hours and she no longer needed antiemetics. She did have mild hypokalemia that was treated with addition of potassium chloride to her IV fluids. LABORATORY DATA White blood cell count on admission was 14.0. It increased on hospital day #2 up to 19.5. It steadily decreased to 6.9 by dismissal. Potassium ranged from 3.[address] scan the abdomen and pelvis from 03/25/2017 had shown severe acute sigmoid diverticulitis with evidence of a contained perforation and phlegmon/abscess in the left pelvic sidewall area. The patient also had an adnexal cyst in the left pelvis. It was stable from prior exams. DISPOSITION Home by private vehicle. CONDITION ON DISCHARGE Good. DISCHARGE INSTRUCTIONS DIET: The patient should be on a low-residue diet and should use a daily fiber supplement. ACTIVITY: There is no restrictions, but she was informed that she should not drive while taking narcotic pain pills. MEDICATIONS: See discharge medical reconciliation. FOLLOWUP: The patient should follow up in my clinic in about 1 week. She will need a CT scan of the abdomen and pelvis in about a [id number] for recheck of her inflammation in the left lower quadrant. SARAH
== END 2017-03-29 17:40 | disposition home or self-care (01) | DRG 392 ==
LOC: ED 11:03 → SRG 15:22
PROVIDERS: ADMIT Surgery; ATTEND Surgery

== ENCOUNTER 2017-05-25 09:13 | Inpatient (IN) ==
[2017-05-25] MEDS ORDERED: SCOPOLAMINE 1mg/3 days PATCH TD ONE ×2 (10:06→10:45)
[2017-05-25] MEDS ORDERED: MIDAZOLAM 2mg/2ml INJECTION IVP ONE (10:06)
--- NOTE | 2017-05-25 10:06 | Anesthesia Preoperative Report ---
Anesthesia Preoperative Record - Date and Time Date: 05/25/17 Preoperative Diagnosis: Sigmoid Resection sigmoid diverticulitis Proposed Procedure: sigmoid colon resection robotic assisted NPO Since Date: 05/24/17 NPO Since Time: 23:00 Allergies/Adverse Reactions: Allergies Allergy/AdvReac Type Severity Reaction Status Date / Time vancomycin Allergy Severe causes Verified 05/04/17 14:38 itching, swelling of extremities, facial flushing prednisone Allergy Intermediate SWELLING Verified 05/04/17 14:38 aspirin Allergy Unknown RASH Verified 05/04/17 14:38 cortisone Allergy Unknown SWELLING,BLADDER Verified 05/04/17 14:38 DYSFUNCTION erythromycin base Allergy Unknown RASH Verified 05/04/17 14:38 halothane Allergy Unknown VENTRICULAR Verified 05/04/17 14:38 TACHYCARDIA neomycin Allergy Unknown RASH Verified 05/04/17 14:38 Penicillins Allergy Unknown RASH Verified 05/04/17 14:38 Sulfa (Sulfonamide Allergy Unknown RASH Verified 05/04/17 14:38 Antibiotics) zomepirac Allergy Unknown INTRADERMAL Verified 05/04/17 14:38 BLEEDING metronidazole Allergy Blistering Verified 05/04/17 14:38 Hives diphenhydramine AdvReac Mild hyperactive Verified 05/04/17 14:38 tetracycline AdvReac Unknown STOMACH Verified 05/04/17 14:38 ACHE,VOMITING,DIARRHEA Cephalexin Monohydrate Allergy Unknown RASH Uncoded 05/04/17 14:38 clindamycin HCl Allergy Unknown "LIVER Uncoded 05/04/17 14:38 SWELLING" Clindamycin Palmitate Allergy Unknown "LIVER Uncoded 05/04/17 14:38 SWELLING" clindamycin phosphate Allergy Unknown "LIVER Uncoded 05/04/17 14:38 SWELLING" lincomycin HCl Allergy Unknown RASH Uncoded 05/04/17 14:38 metaproterenol sulfate Allergy Unknown RASH,SOA Uncoded 05/04/17 14:38 - Medications Inpatient Medications: Current Medications Lactated Ringer's (Lactated Ringers) 1,000 mls @ 50 mls/hr IV .Q20H TORSTEN Ertapenem 1 g/ Sodium Chloride 100 mls @ 200 mls/hr IV PREOP ONE Stop: 05/25/17 16:13 Lidocaine HCl (Xylocaine-Mpf 1% Vial) 1 mg ID O ONE Stop: 05/25/17 15:05 Home Medications: Home Medications Medication Instructions Recorded Confirmed Type Ibuprofen 1 tab PO Q6H PRN #0 tab 08/10/14 05/25/17 History Acetaminophen SR [Tylenol 1,300 mg PO Q8HR 03/25/17 05/25/17 History Arthritis] Ipatropium/Albuterol [Combivent 1 puff INH QID 03/25/17 05/25/17 History Respimat Inhaler] polyethylene glycol 3350 17 17 g PO DAILY g 04/05/17 05/25/17 History gram/dose oral powder Moxifloxacin HCl [Avelox] 400 mg PO DAILY 05/25/17 05/25/17 History - Medical History Respiratory: Reports: Asthma, Sleep Apnea Gastrointestional: Reports: Other (Diverticulitis) Neuro/Musculoskeletal: Reports: Depression (when going through a divorce) Other History: Reports: Anesthesia Reactions (N&V) - Surgical History Respiratory Surgery/Treatments: Reports: CPAP Use GI Surgery/Treatments: Reports: Cholecystectomy Reproductive Surgery/Treatment: Reports: Hysterectomy, Oophorectomy (left one is still there) Hx Family Anesthesia Reaction: Yes (grandma toke awhile to wake up ) History of Motion Sickness: No - Social History Smoking Status: Current some day smoker Substance Use Type: does not use Alcohol Intake: current Alcohol Intake Frequency: holidays/special occasions only - Pertinent Findings EKG: Sinus Bradycardia - Physical Exam Respiratory Exam: Present: lungs clear, bilateral breath sounds equal Cardiovascular Exam: Present: regular rate and rhythm, no murmur - Airway Assessment Mallampati Score: II TMD: 3 Fingerbreadths Neck Extension: good Overall Assessment: no airway concerns - ASA ASA Score: 3 - Plan Anesthesia: General Inhalation Gases - Discussion Discussion: Discussed risks/options/alternatives of anesthesia and questions answered. Patient consents. Nursing pain assessment noted. Attestation Statement: Prior to the delivery of any anesthetic medication, I examined the patient, developed the plan, obtained the patient's consent and discussed the risk and benefits of the procedure with the patient/guardian. - Additional Information Seen by Anesthesia: Yes
[2017-05-25] MEDS ORDERED: ANESTHESIA MIXTURE 50 ML IV ONE ×2 (10:30→14:30)
[2017-05-25 10:37] VITALS: BMI 41.5
[2017-05-25] MEDS: LR 1,000 ML IV SCH ×4 (10:37→23:28)
[2017-05-25] MEDS ORDERED: PROPOFOL 20 ML ONE (11:15)
[2017-05-25] MEDS ORDERED: FentaNYL 100 MCG/2 ML INJECTION ONE ×5 (11:15→22:34)
[2017-05-25] MEDS ORDERED: ROCURONIUM 50 MG/5 ML INJECTION IVP ONE (11:15)
[2017-05-25] MEDS ORDERED: LIDOCAINE 1% (10mg/ml) 30ml SDV INJ ONE (11:54)
[2017-05-25] MEDS ORDERED: BUPIVACAINE 0.5%/EPI 1:200,000 INJ 30ml SDV ONE (11:54)
[2017-05-25] MEDS ORDERED: DEXAMETHASONE 4 MG/ML INJECTION ONE (11:59)
[2017-05-25] MEDS ORDERED: ONDANSETRON 4 MG/2 ML INJECTION ONE ×2 (11:59→22:14)
[2017-05-25] MEDS ORDERED: METOCLOPRAMIDE 10mg/2ml INJECTION ONE (11:59)
[2017-05-25] MEDS ORDERED: LIDO 1% 30ml/BUPIV 0.25%-EPI 1:200T 30ml MIXTURE (60ml total) ID ONE (14:59)
[2017-05-25] MEDS ORDERED: LIDOCAINE 1% (10mg/ml) 2mL INJ PF SDV ID ONE (15:04)
[2017-05-25] MEDS ORDERED: VECURONIUM 10 MG/10 ML VIAL IV ONE ×2 (15:18→18:57)
[2017-05-25] MEDS ORDERED: ERTAPENEM 1 G in NS 100 ML IV ONE (15:44)
[2017-05-25] MEDS ORDERED: SEVOFLURANE 250ml LIQUID IH ONE (15:50)
--- NOTE | 2017-05-25 17:23 | Operative Note ---
DATE OF PROCEDURE 05/25/2017 PREOPERATIVE DIAGNOSIS Bilateral ureteral stent placement prior to sigmoid colon resection. POSTOPERATIVE DIAGNOSIS Bilateral ureteral stent placement prior to sigmoid colon resection. PROCEDURE PERFORMED Cystoscopy with bilateral stent placement. PRIMARY SURGEON Alexandre Sawant MD INDICATIONS FOR PROCEDURE This is a 47-year-old patient who is undergoing a robotic sigmoid colon resection today with Dr. Geiger. I was asked to place bilateral lighted stents during the procedure to help identify the ureters. DESCRIPTION OF PROCEDURE The patient was in the OR in the dorsal lithotomy position. The genitalia were prepped and draped in the usual fashion. At this time formal timeout was done - all persons in the room were in agreement. I began the procedure by introducing my rigid scope into the bladder. I identified the two UOs which were orthotopic in position. There were no suspicious lesions noted in the bladder. I began by placing the lighted ureteral stent on the left side. This was done over a Sensor wire. It was advanced to the double enriqueta without any problems. The cystoscope was then removed. The same maneuver was repeated on the right side in a similar fashion. The lighted stent was placed on the right side and advanced without problems to the double enriqueta. Once both stents were in I removed the cystoscope from the bladder and placed a 16-Fr Lopez. The Lopez was secured to the stents with silk sutures. I then placed the electrode in each stent in order to provide lighting during the procedure. Care of the patient was handed back to Dr. Geiger so he can perform his procedure. [facility]OSPITALMagali
[2017-05-25] MEDS ORDERED: INDOCYANINE GREEN 25mg INJECTION IVP ONE ×2 (20:09→20:14)
[2017-05-25] MEDS ORDERED: INDOCYANINE GREEN 25mg INJECTION ONE (20:12)
[2017-05-25] MEDS ORDERED: MORPHINE SULFATE 10 MG/ML VIAL IVP PRN (22:05)
[2017-05-25] MEDS ORDERED: SUGAMMADEX 200mg/2ml INJECTION IVP ONE (22:12)
[2017-05-25] MEDS: FentaNYL 100 MCG/2 ML INJECTION IVP PRN ×3 (23:05→23:26)
--- NOTE | 2017-05-25 23:07 | General Surgery Procedure Note ---
Date of Procedure: 05/25/17 Surgeon: Juanjo Insurance Broker: Alivia Anesthesia: General Inhalation Gases ASA Score: 3 Postoperative Diagnosis: Chronic sigmoid diverticulosis Procedure: Robotic converted to open sigmoid colectomy, Robotic mobilization of the splenic flexure
--- NOTE | 2017-05-25 23:08 | Anesthesia Postoperative Note ---
- Date and Time Date: 05/25/17 Time: 23:10 - Status Patient Participated in Evaluation: Patient Participated in Person Vital Signs: Temperature 97.6 F 05/25/17 22:53 Pulse Rate 77 05/25/17 22:53 Respiratory Rate 12 05/25/17 22:53 Blood Pressure 132/81 05/25/17 22:53 Pulse Oximetry 92 05/25/17 22:53 Respiratory Function: Airway Patent Cardiovascular Function: Regular Pulse EKG: Sinus Rhythm Mental Status: Alert and Oriented Pain Intensity: 7 Hydration: IV Infusing Complications During Recover: None Apparent - Follow-Up Instructions Instructions: Per Surgeon
[2017-05-25] MEDS ORDERED: METOCLOPRAMIDE 10mg/2ml INJECTION IVP PRN (23:34)
[2017-05-25] MEDS: HYDROMORPHONE 2 MG/ML INJECTION IVP PRN ×2 (23:45→23:58)
[2017-05-26] MEDS: HYDROMORPHONE 2 MG/ML INJECTION IVP PRN ×2 (00:08→00:20)
[2017-05-26] MEDS ORDERED: HYDROMORPHONE PCA 30mg/30ml VIAL IV PRN (00:51)
[2017-05-26] MEDS ORDERED: HYDROMORPHONE 2 MG/ML INJECTION IVP PRN (00:51)
[2017-05-26] MEDS: LR 1,000 ML IV SCH ×3 (00:59→17:49)
[2017-05-26] MEDS: ALBUTEROL/IPRATROPIUM 2.5mg-0.5mg/3ml NEB AEROSOL SCH ×4 (07:46→20:55)
[2017-05-26] MEDS: ENOXAPARIN 40 MG/0.4 ML INJECTION SQ SCH (08:04)
[2017-05-26] MEDS ORDERED: ERTAPENEM 1 G in NS 100 ML IV SCH (09:00)
[2017-05-26] MEDS: ONDANSETRON 4 MG/2 ML INJECTION IVP PRN ×2 (09:44→20:23)
--- NOTE | 2017-05-26 10:17 | Operative Note ---
DATE OF OPERATION 05/25/2017 SURGEON Aaron Geiger MD TOOLROOM CHECKER Fercho Bunch MD PREOPERATIVE DIAGNOSIS Chronic diverticulitis. POSTOPERATIVE DIAGNOSIS Chronic diverticulitis. PROCEDURE 1. Robotic converted to open low anterior colon resection with coloproctostomy (circular stapled). 2. Robotic mobilization of the splenic flexure. 3. Incidental appendectomy. ANESTHESIA General. ASA CLASS 3 INDICATIONS The patient is a 47-year-old female who was admitted to the hospital on 2016 for diverticulitis. Her symptoms were able to be controlled with antibiotics. She wanted the best chance for avoidance of a colostomy and so surgery was delayed for 8 weeks. She did have some ongoing symptoms though repeat imaging did show improvement in her inflammation. She has remained on antibiotics. FINDINGS The distal sigmoid colon and proximal rectum showed significant inflammation and fibrosis with dense adherence to the left ovary and left pelvic sidewall. The induration of the tissue extended down into the rectum, so more distal dissection was required to adequately treat the diverticulitis. The descending colon was rather tethered by the left colic artery, so the artery was divided when mobilization of the splenic flexure was unsuccessful to allow adequate length of the descending colon to reach the pelvis. This created a 12 cm segment of the descending colon that did not show adequate perfusion for anastomosis. The appendix was grossly normal but, given the extent of surgery and the likely future adhesions, it was felt that incidental appendectomy would be advantageous. DESCRIPTION OF PROCEDURE After informed consent was obtained the patient was taken to the operating room and placed in the low lithotomy position. A cystoscopy with ureteral stent placement was performed by Dr. Dr. Alexandre Sawant. Please see his separate procedure note. Following 's procedure the patient's abdomen and perineum were prepped and draped in the usual sterile fashion. Local was injected just inferior to the umbilicus and a small skin incision was made. The base of the umbilicus was elevated with a Doreen clamp and a Veress needle was inserted and was used to obtain pneumoperitoneum. Local was injected in the right upper quadrant and a small skin incision was made followed by a 12 mm port that was advanced with an OptiView technique. Laparoscope was then inserted and was used to inspect the area beneath the Veress needle entry. There was no evidence of problems and the Veress needle was removed. A robotic trocar was placed in the right lower quadrant and then upsized to the robotic stapler cannulae. A robotic trocar was placed under direct vision in the left subxiphoid region and also in the left lateral abdomen. After all the ports were placed, the patient was put into steep Trendelenburg and the robotic patient cart was brought into position and was docked to the cannulae. Prior to docking a 5-mm AirSeal cannula had been placed in the right abdomen as an department assistant port. With robotic instruments in place, cautery was used to take down the lateral attachments of the sigmoid colon. The right and left ureters were easily identified with the lighted stents. Care was taken to avoid injury to the left ureter as the sigmoid colon was reflected medially. Dissection continued down into the pelvis and the area of inflammation adjacent to the left ureter was noted. Dissection was performed along the right pelvic sidewall as well as anteriorly to help identify the proper tissue planes prior to dissecting through the densely adherent mesentery of the rectum. The left pelvic dissection was completed with electrocautery. There was one ovarian cyst that was entered and drained of serous fluid. Further dissection revealed a small abscess cavity inferior to the left ovary. A sample of this was taken and was sent to the lab for analysis per the request of Dr. Radha Henley. The inflammation was eventually able to be transected with blunt dissection and electrocautery. The distal sigmoid colon was then freed. The vessel sealer was used to divide the mesentery of the distal sigmoid colon and proximal rectum. The site was selected for transection, but the robotic stapler would not clamp across the tissue. A site for proximal resection was selected and a window was made in the mesentery. The bowel was divided with the robotic stapler. The mesentery was divided with the vessel sealer. Attention was returned to the pelvis and it was felt that the stapler had not clamped in the pelvis due to tissue thickness and induration. Additional dissection was performed along the rectum in a circumferential fashion until softer bowel could be encountered. This was deep within the pelvis below the peritoneal reflection. The robotic stapler was readvanced and still would not clamp across the entire bowel but was able to be divided with two firings of the robotic stapler. With the specimen resected, attention was turned to the descending colon. It was noted that this would not reach the pelvis. The robotic instruments were removed and the patient was taken out of Trendelenburg position. The robotic patient cart was repositioned. The two traditional robotic trocars were removed and the skin incisions were closed with chay. New locations for the robotic trocars were selected to allow for mobilization of the splenic flexure. The robotic patient cart was docked to the cannulae and the vessel sealer was used to divide the omental attachments to the left abdominal sidewall. The white line of Toldt was divided with the vessel sealer and dissection was continued up to the region of the spleen. The greater omentum was taken off of the distal transverse colon and the plane was developed between the transverse colon mesentery and the greater omentum until the splenic flexure was mobilized. Attempts were made to move the descending colon down into the pelvis and this was not possible. Further mobilization of the mesentery of the splenic flexure and descending colon was performed, but this still did not achieve adequate length. The left colic artery was divided with the vessel sealer which did add additional length so that the bowel would reach the pelvis. The patient was given two injections of indocyanine green and Firefly imaging was used to inspect the bowel perfusion. There was a segment of the distal end of the descending colon that was not showing evidence of perfusion. The distal aspect of the perfused bowel was marked with cautery on the serosal surface. At this point in time it was felt that further robotic attempts would be unsuccessful. A lower midline incision was then created that extended to just above the umbilicus. Electrocautery was used to dissect down through the subcutaneous tissue and fascia. The base of the umbilicus was divided with cautery. An Baudilio wound protector was placed to protect the subcutaneous space. The specimen was removed and was sent to Pathology. The mesentery of the distal transverse colon was freed by dividing some of the further adhesions and the peritoneum. This allowed lengthening of the mesentery so that the perfused portion of the descending colon would reach the pelvis in the area of anastomosis. The pelvis was irrigated. Hemostasis was achieved with electrocautery. A window was made in the mesentery of the descending colon at the site previously selected for transection. This was moved proximally to ensure adequate perfusion and also avoid a few diverticula. The bowel was clamped with a Doreen clamp and then cut with a scalpel just proximal to the clamp. A 33 mm sizer was able to be passed into the lumen of the bowel. The edges of the bowel were held with Allis clamps and a pursestring suture of 3-0 PDS was placed. The anvil of a 33-mm circular stapler was inserted and the pursestring suture was tightened around the post of the anvil. The tissue along the serosal surface above the anvil was cleared with cautery. An incidental appendectomy was then performed given the significant extent of surgery and the likely adhesions that would form. A window was made at the base of the appendix and the mesoappendix was divided between clamps. The mesoappendix was ligated with 0 Vicryl ties. The appendix was ligated with pursestring sutures of 3-0 Vicryl. Two sutures were placed. The appendix was then clamped and divided with a scalpel. The stapler was then advanced into the rectal stump. The spike of the stapler was deployed just posterior to the staple line of the rectal stump. The anvil was connected and the stapler was closed and then fired. The stapler was gently removed and the anastomotic doughnuts were inspected and were found to be intact. Water was placed in the pelvis and the rectum was insufflated with a rigid proctoscope. No leakage of air was noted from along the anastomosis. The fascia was closed with running # 1 PDS suture. The fascial incisions of the camera port and the stapler port had both been closed with [id number] stitches of O Vicryl. The base of the umbilicus was tacked to the fascia using a [id number] stitch of 3-0 Vicryl. All of the skin incisions were closed with skin chay. Sterile dressings were applied. Please note Dr. Bunch was present throughout the entire procedure and offered critical assistance with laparoscopic retraction as well as creation of the pelvic anastomosis. SARAH
--- NOTE | 2017-05-26 12:35 | General Surgery Progress Note ---
Subjective Narrative: Patient feels reasonably good for postop day 1 sigmoid resection for diverticulitis. Not passing flatus yet. Denies nausea. Denies chest pain shortness of air. She is been up and walk short distances 3 times already this morning. Faithfully using her incentive spirometer. - Vital Signs Last Vital Signs Temp 98 F 05/26/17 11:55 Pulse 100 05/26/17 11:55 Resp 14 05/26/17 11:55 BP 113/57 05/26/17 11:55 Pulse Ox 91 05/26/17 11:55 - Laboratory Result Diagrams: 05/26/17 04:08 05/26/17 04:08 - Microbiogy Microbiology 05/25/17 14:24 Pelvis Gram Stain - Final 05/25/17 14:24 Pelvis Surgical Culture - Preliminary Culture Initiated - Results Pending - Abnormal Exam Respiratory: wheezes (she states she usually has wheezes) Abdominal: obese, hypoactive bowel sounds - Normal Exam General: awake, alert, oriented, no acute distress Abdominal: soft, appropriately tender, incision(s) (midline dressing lifted up and I was able to see the chay, no erythema or ecchymosis.) Female: other (urine output is more than adequate, urine in Lopez bag is blood-tinged likely from the stents placed for surgery.) Psychiatric: normal affect Assessment and Plan (1) Status post laparoscopic colectomy Current Visit: Yes Status: Acute (2) Asthma, chronic Current Visit: Yes Status: Acute Qualifiers: Asthma severity: unspecified severity Asthma complication type: unspecified (3) Obesity Current Visit: Yes Status: Acute Qualifiers: Body mass index: BMI 40.0-44.9 (4) IVETH (obstructive sleep apnea) Current Visit: No Status: Chronic Plan: Postop day 1 post robotic-assisted sigmoid resection for recurrent diverticulitis. Denies nausea although not passing flatus. Remain on clear liquids. Continue antibiotics, Invanz today on moxifloxacin to start tomorrow per infectious disease recommendations. Leukocytosis likely in part due to stress response, antibiotics per infectious disease. Continue to monitor urine output. Encourage ambulation and incentive spirometer. Daily labs. Hospital Course Summary Disclaimer: The visit summary below is not to be considered part of the above Progress Note.
--- NOTE | 2017-05-26 15:43 | Progress Note ---
DATE OF SERVICE 05/26/2017 FINDINGS Mrs. Yeboah was seen earlier this morning on rounds. Her mother was present. The patient was complaining of a component of some incisional discomfort as one would expect. Pain is mostly noted upon moving and not while lying in bed. PHYSICAL EXAM VITAL SIGNS: Afebrile. Normotensive. Please refer to EMR. ABDOMEN: Dressings are in place and clean, dry and intact. Palpation along the lateral aspect of her abdomen did not elicit any discomfort. There was no evidence for guarding or rebound. The patient, of course,, had more incisional tenderness along the midline upon palpation. LABORATORY/RADIOGRAPHIC EVALUATION The patient had a CBC today and her white count was elevated at 15,000, most likely a result of stress from surgery. BMP was obtained and found to be without marked abnormalities. ASSESSMENT 47-year-old female status post sigmoid resection/low anterior resection secondary to chronic diverticulitis. Patient appears well on postop day #1. PLAN Will continue with clear liquids. The patient did state that she had some nausea this morning after liquids. Will continue with current care at this time. Will likely DC Lopez tomorrow given her limited mobility today. I encouraged ambulation. SARAH
[2017-05-27] MEDS: METOCLOPRAMIDE 10mg/2ml INJECTION IVP PRN (01:41)
[2017-05-27] MEDS: LR 1,000 ML IV SCH ×3 (01:53→18:18)
[2017-05-27] MEDS: ONDANSETRON 4 MG/2 ML INJECTION IVP PRN ×3 (03:28→21:32)
[2017-05-27] MEDS: ALBUTEROL/IPRATROPIUM 2.5mg-0.5mg/3ml NEB AEROSOL SCH ×4 (07:13→21:42)
[2017-05-27] MEDS: ENOXAPARIN 40 MG/0.4 ML INJECTION SQ SCH (08:39)
[2017-05-27] MEDS: MOXIFLOXACIN 400 MG PO SCH (08:40)
[2017-05-27] MEDS: KETOROLAC 30 MG/ML INJECTION IVP PRN ×3 (11:24→23:43)
--- NOTE | 2017-05-27 14:50 | Progress Note ---
DATE: 05/27/2017 FINDINGS The patient was seen earlier today on rounds. She stated that she was "not feeling well." Upon questioning the patient she really denied much in the way of nausea. She denied much in way of increasing abdominal pain. She stated that she just felt "worn out." VITALS: Afebrile. Normotensive. Please refer to EMR. CHEST: Clear to auscultation bilaterally. HEART: Regular rate and rhythm. Normal S1 and S2 without gallops, murmurs or clicks. ABDOMEN: Abdomen soft. Minimal incisional tenderness. Dressing was removed and her midline incision was clean, dry and intact with no evidence for erythema. ASSESSMENT 47-year-old female status post low anterior resection secondary to chronic diverticulitis. Patient making slow improvement. PLAN Will DC Lopez. Will keep on clear liquids today. She has had no flatus. Will go ahead and recheck lab tomorrow consisting of CBC and BMP. Continue to follow closely with serial abdominal examinations. SARAH
[2017-05-28] MEDS: LR 1,000 ML IV SCH ×5 (02:29→12:28)
[2017-05-28] MEDS: ONDANSETRON 4 MG/2 ML INJECTION IVP PRN ×3 (04:15→17:56)
[2017-05-28] MEDS: KETOROLAC 30 MG/ML INJECTION IVP PRN ×3 (05:46→18:27)
[2017-05-28] MEDS: ALBUTEROL/IPRATROPIUM 2.5mg-0.5mg/3ml NEB AEROSOL SCH ×4 (07:59→20:12)
[2017-05-28] MEDS: METOCLOPRAMIDE 10mg/2ml INJECTION IVP PRN ×2 (08:10→15:18)
[2017-05-28] MEDS: ENOXAPARIN 40 MG/0.4 ML INJECTION SQ SCH (08:54)
[2017-05-28] MEDS: MOXIFLOXACIN 400 MG PO SCH (08:55)
--- NOTE | 2017-05-28 11:48 | Progress Note ---
DATE OF SERVICE 05/28/2017 FINDINGS Patient is without complaints this morning. She states she has had several bowel movements. She states she is "feeling better." She has noted some "numbness" along her left anterior thigh. EXAM VITAL SIGNS: Afebrile, normotensive. Please refer to EMR. HEENT: Normocephalic. Pupils are equally round and react to light and accommodation. NECK: Supple without lymphadenopathy. CHEST: Clear to auscultation bilaterally. HEART: Regular rate and rhythm. Normal S1 and S2 without gallops, murmurs or clicks. ABDOMEN: Visualization of the abdomen reveals her prior midline incision to be clean, dry, intact with no evidence for erythema. Palpation of the abdomen reveals it to be soft and completely nontender. EXTREMITIES: Without clubbing, cyanosis, or edema. NEURO: Cranial nerves II-XII grossly intact. Patient is without focal motor or sensory deficits. LABORATORY/RADIOGRAPHIC EVALUATION The patient had a CBC and BMP today that were unremarkable. Hemoglobin has drifted down slightly at 9.7. White count has returned to normal at 10. ASSESSMENT 47-year-old female status post sigmoid resection/low anterior resection secondary to chronic diverticulitis. Patient doing well. PLAN Will decrease IV fluids to 50 mL/hr. Will advance diet as tolerated. Will continue to follow closely. MTDD
[2017-05-29] MEDS: KETOROLAC 30 MG/ML INJECTION IVP PRN ×3 (00:40→17:17)
[2017-05-29] MEDS: ONDANSETRON 4 MG/2 ML INJECTION IVP PRN (03:03)
[2017-05-29] MEDS: LR 1,000 ML IV SCH ×2 (05:29→11:49)
[2017-05-29] MEDS: ALBUTEROL/IPRATROPIUM 2.5mg-0.5mg/3ml NEB AEROSOL SCH ×4 (07:14→20:12)
[2017-05-29] MEDS: ENOXAPARIN 40 MG/0.4 ML INJECTION SQ SCH (09:04)
[2017-05-29] MEDS: MOXIFLOXACIN 400 MG PO SCH (09:04)
[2017-05-29] MEDS ORDERED: Bisacodyl EC TAB 5 MG TABLET PO ONE (11:26)
[2017-05-29] MEDS ORDERED: ALBUTEROL 2.5mg/3ml (0.083%) NEB AEROSOL PRN (11:31)
[2017-05-29] MEDS: HYDROCODONE/APAP 5mg/325mg TABLET PO PRN ×3 (12:47→23:59)
[2017-05-30] MEDS: HYDROCODONE/APAP 5mg/325mg TABLET PO PRN ×3 (00:03→10:02)
[2017-05-30] MEDS: ALBUTEROL/IPRATROPIUM 2.5mg-0.5mg/3ml NEB AEROSOL SCH ×3 (07:36→16:37)
[2017-05-30 07:57] VITALS: PULSE 60; TEMP 98.6
--- NOTE | 2017-05-30 08:25 | Progress Note ---
DATE OF VISIT 05/29/2017 FINDINGS The patient this morning was without complaints. She states that she has not had additional bowel movement. She has been tolerating a regular diet, however. Denies nausea or vomiting. The patient stated that her wheezing became worse last evening and is requesting p.r.n. breathing treatment. She denies any shortness of breath this morning. Vitals: Afebrile. Normotensive. Please refer to EMR. Chest: Clear to auscultation. Abdomen: Soft. Minimal incisional tenderness. No evidence for guarding or rebound. ASSESSMENT 47-year-old female status post sigmoid resection/low anterior resection secondary to chronic diverticulitis. Patient doing well. PLAN Will hep-lock IV fluids. Will give Dulcolax tablets to facilitate bowel movement. Will place on p.o. pain meds. 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 Patient will likely be able to be discharged tomorrow if she continues on her current course. MTDD
[2017-05-30] MEDS: MOXIFLOXACIN 400 MG PO SCH (08:29)
[2017-05-30] MEDS: ENOXAPARIN 40 MG/0.4 ML INJECTION SQ SCH (08:29)
[2017-05-30] MEDS ORDERED: IBUPROFEN 600 MG TABLET PO PRN (12:46)
[2017-05-30] MEDS: OXYCODONE/APAP 7.5 MG/325 MG TABLET PO PRN ×2 (13:13→17:14)
[2017-05-30] MEDS ORDERED: FLUCONAZOLE 100 MG TABLET PO SCH (14:15)
[2017-05-30 16:47] VITALS: BP 141/71; RESP 16; O2SAT 95
--- NOTE | 2017-05-30 17:34 | Progress Note ---
DATE OF VISIT 05/30/2017 REASON FOR VISIT Postoperative followup. SUBJECTIVE Magda did have another bowel movement with the Dulcolax. She feels like her oral pain medication is only lasting four hours and she is having to bridge with Toradol until the five-hour time frame when her Petrolia is due. She has been tolerating a regular diet. She does have one area of more intense pain but does not feel that it is severe. She also complains of some right shoulder pain. She has had some ongoing numbness of the lateral aspect of the left thigh but feels that her numbness in the "sciatic area" has resolved. She has been ambulating well. OBJECTIVE VITAL SIGNS: Afebrile with stable vitals on room air. GENERAL: The patient is awake, alert, in no acute distress. ABDOMEN: Soft, appropriately tender. Her incisions are all clean, dry and intact without evidence of infection. LABORATORY DATA The patient's microbiology results and pathology results were reviewed with her. See the EMR. IMPRESSION 1. Postop day #5 status post robotic converted to open low anterior colon resection with coloproctostomy and robotic mobilization of the splenic flexure along with incidental appendectomy for chronic diverticulitis - doing well. 1. Multiple allergies to antibiotics. 2. Obesity with BMI of 44. 3. Obstructive sleep apnea requiring CPAP - chronic. PLAN 1. I will change Magda's pain medication to Percocet 7.5 with one tablet every three hours as needed for pain. I will also change her Toradol to oral ibuprofen with 600 mg every six hours as needed for pain. 2. I contacted Dr. Radha Henley, Infectious Disease, to review the microbiology results. She recommended adding fluconazole with 200 mg daily for seven days and completion of the course of moxifloxacin. 3. I will check back in with Magda's nurse to see how her pain control has been. As long as the new pain regimen is adequate I think she could be dismissed this evening. 4. Discharge instructions were reviewed with the patient. SARAH
--- NOTE | 2017-05-31 17:53 | Discharge Summary ---
ATTENDING PHYSICIAN Aaron Geiger MD REASON FOR ADMISSION Scheduled surgery. DISCHARGE DIAGNOSES 1. Chronic diverticulitis. 2. Obesity with BMI 44.1. 3. Obstructive sleep apnea - chronic. 4. Asthma - chronic. CONSULTATIONS None. PROCEDURES The patient underwent robotic converted to open low anterior colon resection with coloproctostomy, robotic mobilization of the splenic flexure, and incidental appendectomy on 05/25/[address] Geiger with the assistance of Dr. Bunch. BRIEF HOSPITAL COURSE The patient was admitted for scheduled surgery. She underwent a lengthy operation as described above. Postoperatively she was doing well and was transferred to the floor. She was given a Dilaudid TIME CHECKER for pain control. She was started on Lovenox on postop day #1 as well as a clear liquid diet. On postop day #2 she was kept on clear liquids but her Lopez catheter was discontinued. She was doing well. On postop day #3 her IV fluids were decreased and her diet was advanced since she had had several bowel movements. On postop day #4 her fluids were stopped and she was tolerating a regular diet. Her TIME CHECKER was discontinued and she was switched to hydrocodone. On postoperative day #5 she was switched to oral Percocet 7.5 with one tablet every three hours as needed for pain and also oral ibuprofen. Her microbiology results had returned and Dr. Radha Henley of Infectious Disease was consulted by telephone. She recommended coverage of the yeast on the culture with Diflucan at 200 mg daily for a week. She was given a dose before leaving the hospital. She had received a dose of Invanz preoperatively as well as on postop day #1. On postop day #2 her home moxifloxacin was reinitiated to complete her total of a three-week course with roughly two weeks being after her surgery as planned by Dr. Henley. When her pain regimen had been tested on the afternoon of postop day #5 she was dismissed home and she was doing well. DISPOSITION Home by private vehicle. CONDITION ON DISCHARGE Good. DISCHARGE INSTRUCTIONS Diet: Regular diet as tolerated. Activity: No heavy pushing, pulling, straining, or lifting over 15 pounds for a month following surgery. Wound Care: She may shower but should not take a bath or swim for two weeks. FOLLOWUP She should follow up in my clinic for staple removal two weeks after surgery. MEDICATIONS See discharge medical reconciliation and prescriptions. SARAH
== END 2017-05-30 18:05 | disposition home or self-care (01) | DRG 330 ==
LOC: NMC.PERIOP 09:13 → SRG 05-26 00:47
PROVIDERS: ADMIT Surgery; ATTEND Surgery